=== PATIENT | female | born 1985 | race Hispanic/Latino ===

== ENCOUNTER 2021-10-27 15:26 | Emergency (ER) | payer SELFPAY | END 2021-10-27 16:30 | disposition home or self-care (01) | LOC: CSHERS 15:26 | DX: S16.1XXA Strain of muscle, fascia and tendon at neck level, initial encounter (principal) | CPT/HCPCS: 99284 ==

== ENCOUNTER 2023-04-24 22:15 | Emergency (ER) | payer SELFPAY ==
[2023-04-25 02:50] LABS: #Basophils 0.1 10x3/uL (0.0-0.2); #Eosinphils 0.1 10x3/uL (0.0-0.5); #Monocytes 0.9 10x3/uL (0.0-1.1); #Neutrophils 4.5 10x3/uL (1.5-8.4); %Lymphocytes 31.3 % (18.0-47.0); %Monocytes 10.9 % (0.0-10.0); %Neutrophils 55.6 % (40.0-75.0); Hemoglobin 11.2 g/dL (12.0-15.5); Mean Corpuscular HGB CONC 32.6 g/dL (32.0-36.0); Mean Corpuscular Hemoglobin 26.9 pg (27.0-33.0); Mean Corpuscular Volume 82.7 fl (81.6-98.3); Mean Platelet Volume 11.1 fl (7.4-10.4); Platelet Count 301 10x3/uL (150-450); RBC Distribution Width 14.8 % (11.5-14.5); Red Blood Cell (RBC) Count 4.16 10x6/uL (3.90-5.03)
[2023-04-25 03:06] LABS: Anion Gap 12 mmol/L (10-20); BUN (Urea Nitrogen) 17 mg/dL (7.0-18.7); Calc. Creatinine Clearance 0 mL/min (70-130); Calcium 8.8 mg/dL (7.8-10.44); Carbon Dioxide 20 mmol/L (22-29); Chloride 111 mmol/L (98-107); Estimated GFR 92; Glucose 95 mg/dL (70-105); Potassium 4.5 mmol/L (3.5-5.1); Sodium 138 mmol/L (136-145)
== END 2023-04-25 04:16 | disposition home or self-care (01) ==
LOC: CSHERS 22:15
DX: R42 Dizziness and giddiness (principal); M79.602 Pain in left arm
CPT/HCPCS: 80048; 85025; 93005

== ENCOUNTER 2024-05-10 17:14 | Emergency (ER) | payer SELFPAY ==
[2024-05-10] MEDS ORDERED: Ondansetron PF 4 MG/2 ML Vial ONE (17:49)
[2024-05-10] MEDS ORDERED: Ketorolac Tromethamine 30 MG (1 mL) VIAL ONE (17:49)
[2024-05-10] MEDS ORDERED: Morphine 4 MG/ML VIAL ONE (17:49)
[2024-05-10 18:02] LABS: #Eosinphils 0.22 10x3/uL (0.0-0.5); #Monocytes 0.88 10x3/uL (0.0-1.1); #Neutrophils 4.34 10x3/uL (1.5-8.4); %Basophils 1.2 % (0.0-2.0); %Eosinophils 2.6 % (0.0-6.0); %Lymphocytes 35.1 % (18.0-47.0); %Monocytes 10.3 % (0.0-10.0); %Neutrophils 50.6 % (40.0-75.0); Hemoglobin 10.2 g/dL (12.0-15.5); Mean Corpuscular HGB CONC 31.9 g/dL (32.0-36.0); Mean Corpuscular Hemoglobin 24.3 pg (27.0-33.0); Mean Corpuscular Volume 76.2 fL (81.6-98.3); Mean Platelet Volume 10.9 fL (7.4-10.4); Platelet Count 401 10x3/uL (150-450); RBC Distribution Width 15.9 % (11.5-14.5); White Blood Cell (WBC) Count 8.6 10x3/uL (3.5-10.5)
[2024-05-10 18:11] LABS: BHCG - Serum Negative (NEGATIVE); Pregs Control Background? CLEAR/WHITE (CLR/WHITE); Pregs Control Bar Appear? YES (CONTROL BAR)
[2024-05-10 18:17] LABS: ALT (SGPT) 15 U/L (8-55); AST (SGOT) 21 U/L (5-34); Albumin 3.9 g/dL (3.5-5.0); Alkaline Phosphatase 78 U/L (40-110); Anion Gap 15 mmol/L (10-20); BUN (Urea Nitrogen) 11 mg/dL (7.0-18.7); Bilirubin, Total 0.4 mg/dL (0.2-1.2); Calc. Creatinine Clearance 0 mL/min (70-130); Carbon Dioxide 21 mmol/L (22-29); Chloride 105 mmol/L (98-107); Estimated GFR 96; Globulin 4.1 g/dL (2.4-3.5); Glucose 115 mg/dL (70-105); Lipase 19 U/L (8-78); Potassium 2.8 mmol/L (3.5-5.1); Sodium 138 mmol/L (136-145)
[2024-05-10] MEDS ORDERED: NS 0.9% w/ 20 MEQ KCL 1,000 ML ONE (18:25)
[2024-05-10 20:10] LABS: Bilirubin Neg (Negative); Blood, Urine 50 (Negative); Clarity Clear (Clear); Glucose, Urine (Dipstick) Normal (Negative); Ketone, Urine Negative (Negative); Leukocyte Negative (Negative); Nitrite Negative (Negative); Protein, Urine (Dipstick) Negative (Neg-Trace); Specific Gravity, Urine 1.015 (1.005-1.030); Urobilinogen Normal mg/dL (Less than 2)
[2024-05-10 20:34] LABS: Bacteria/HPF 2+ HPF (None Seen); CAUTI Indications for Culture Pelvic or flank pain; Squamous Epithelial 0-3 HPF (0-3); WBC/HPF 0-3 HPF (0-3)
[2024-05-10 20:35] LABS: Mucous/LPF 1+ LPF (<2+); Urine Culture Reflex No No
== END 2024-05-10 22:10 | disposition home or self-care (01) ==
LOC: CSHERS 17:14
DX: N20.0 Calculus of kidney (principal); E87.6 Hypokalemia
CPT/HCPCS: 74176; 80053; 81001; 83690; 84703; 85025; 87086; 96361; 96365; 96366; 96375; J1885; J2272; J2405; J3480

== ENCOUNTER 2025-10-10 13:36 | Emergency (ER) | payer SELFPAY ==
[2025-10-10] MEDS ORDERED: Ibuprofen 200 MG TAB ONE (14:27)
[2025-10-10] MEDS ORDERED: Acetaminophen 500 MG TAB ONE (15:37)
[2025-10-10] MEDS ORDERED: Metoclopramide HCl 10 MG (2 mL) VIAL ONE (15:37)
[2025-10-10] MEDS ORDERED: diphenhydrAMINE 50 MG/ML VIAL ONE (15:44)
[2025-10-10 16:23] LABS: #Basophils 0.06 10x3/uL (0.0-0.2); #Eosinophils 0.22 10x3/uL (0.0-0.5); #Monocytes 1.13 10x3/uL (0.0-1.1); #Neutrophils 10.67 10x3/uL (1.5-8.4); %Basophils 0.5 % (0.0-2.0); %Eosinophils 1.7 % (0.0-6.0); %Lymphocytes 8.3 % (18.0-47.0); %Monocytes 8.6 % (0.0-10.0); %Neutrophils 80.6 % (40.0-75.0); Hematocrit 29.6 % (34.9-44.5); Hemoglobin 9.4 g/dL (12.0-15.5); Mean Corpuscular Hemoglobin 23.4 pg (27.0-33.0); Mean Corpuscular Volume 73.6 fL (81.6-98.3); Platelet Count 300 10x3/uL (150-450); Red Blood Cell (RBC) Count 4.02 10x6/uL (3.90-5.03); White Blood Cell (WBC) Count 13.21 10x3/uL (3.5-10.5)
[2025-10-10 16:38] LABS: ALT (SGPT) 14 U/L (Less than 34); AST (SGOT) 16 U/L (11-34); Albumin 3.3 g/dL (3.1-4.5); Alkaline Phosphatase 66 U/L (40-110); Anion Gap 12 mmol/L (10-20); BUN (Urea Nitrogen) 17 mg/dL (7.0-18.7); Bilirubin, Total 0.2 mg/dL (0.3-1.2); Calc. Creatinine Clearance 0 mL/min (70-130); Calcium 8.3 mg/dL (7.8-10.44); Carbon Dioxide 19 mmol/L (22-29); Chloride 108 mmol/L (98-107); Globulin 4.0 g/dL (2.4-3.5); Glucose 97 mg/dL (70-105); Potassium 3.2 mmol/L (3.5-5.1); Sodium 136 mmol/L (136-145)
== END 2025-10-10 17:14 | disposition home or self-care (01) ==
LOC: CSHERS 13:36
DX: R51.9 Headache, unspecified (principal); D64.9 Anemia, unspecified; E87.6 Hypokalemia; I10 Essential (primary) hypertension
CPT/HCPCS: 80053; 85025; 87428; 96374; 96375; J1200; J2765